=== PATIENT | male | born 1945 | race Caucasian/White ===

== ENCOUNTER 2020-10-07 10:47 | Emergency (ER) | payer MEDICARE, SELFPAY ==
[2020-10-07 11:05] VITALS: BP 156/81; PULSE 61; RESP 18; TEMP 36.6; O2SAT 94; BMI 27.8
--- NOTE | 2020-10-07 11:12 | ED_ITS ---
HPI - Trauma General: Chief Complaint: Trauma Stated Complaint: CHIN WOUND/LACERATION Time Seen by Provider: 10/07/20 11:12 History of Present Illness: HPI narrative: Patient is a 75-year-old male comes to the ED with a laceration on chin. Patient says injury occurred just prior to arrival. 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 This caused the laceration to his chin and patient cleaned it out and put ice on it and placed bandage before coming to the ED. Patient says he is up-to-date on his tetanus. Denies any loss of consciousness. Associated symptoms: Denies abdominal pain, back pain, chest pain, chills, fever(s), headache(s), nausea or vomiting Review of Systems Const: Denies: fever(s), chills or fatigue Eyes: Denies: change in vision or eye discomfort ENMT: Denies: throat pain, odynophagia, nasal discharge or nasal congestion Card: Denies: chest pain, palpitations, edema, swelling of feet/ankles, dyspnea on exertion or orthopnea Resp: Denies: dyspnea, productive cough or non-productive cough GI: Denies: abdominal pain, nausea, vomiting, diarrhea, constipation or hematochezia : Denies: flank pain, difficulty urinating, dysuria or hematuria Musc: Denies: neck pain, back pain or extremity swelling Skin/Breast: Reports: new lesions (laceration on chin); Denies: rash Neuro: Denies: headache(s), numbness in extremities or weakness in extremities Physical Exam Const: COMMON NORMALS: no acute distress, patient oriented x3, healthy appearing and alert GENERAL APPEARANCE: cooperative and comfortable HENMT: COMMON NORMALS: normocephalic HEAD & SCALP: normocephalic FACE & SINUS: laceration bilateral chin irregular (U shaped lac), superficial, with motor nerve function intact and with sensation intact; not actively bleeding, no pulsatile bleeding, with no foreign body present and not contaminated Facial laceration size: 2 cm MOUTH: Normal oral and palatal mucosa present THROAT: posterior oropharynx normal and uvula midline Neck/C-Spine: COMMON NORMALS: supple GENERAL: Yes normal visual inspection Resp: COMMON NORMALS: normal respiratory effort, No retractions, No use of accessory muscles and clear to auscultation bilaterally AUSCULTATION: clear to auscultation bilaterally Cardio: COMMON NORMALS: regular rate, regular rhythm, S1 normal heart sound present, S2 normal heart sound present, No gallops present (Cardio), No clicks present (Cardio), No murmurs present (Cardio) and Peripheral pulses 2+ throughout RATE: regular rate RHYTHM: regular rhythm HEART SOUNDS: S1 normal heart sound present and S2 normal heart sound present PERIPHERAL PULSES: Peripheral pulses 2+ throughout GI: COMMON NORMALS: Normal to inspection, nondistended, normoactive bowel sounds present, Soft to palpation, non-tender and no masses PALPATION: Yes Soft to palpation : COMMON NORMALS: Yes no CVA tenderness BLADDER/KIDNEY EXAM: Yes no CVA tenderness Back/Pelvis: COMMON NORMALS: no CVA tenderness Extremity: COMMON NORMALS: normal to inspection Neuro: COMMON NORMALS: patient oriented x3 and moves all extremities SENSORIUM/ORIENTATION: Yes alert Skin: NARRATIVE SKIN EXAM: 2 cm U-shaped superficial laceration to chin. Details in the [facility] section of exam. GENERAL SKIN EXAM: dry skin Procedures Laceration Laceration 1: Site: face (chin) Size (cm): 2 Description: irregular (u shaped) and clean Depth: simple, single layer Local Anesthetic: lidocaine 1% Amount of anesthesia used (mL): 10 Pre-repair: irrigated extensively Skin layer closed with: vicryl Size (cm): 5-0 Number of sutures: 6 Technique: simple, interrupted MDM - Trauma MDM Narrative: Medical decision making narrative: Patient is a 75-year-old male who comes to the ED with a laceration to chin. He is up-to-date on his tetanus shot. Denies any loss of consciousness after injury. Laceration was irrigated extensively with normal saline and cleaned with CHG swab. 6 sutures were placed to close chin laceration. Patient was discharged with cephalexin for prophylactic treatment. He was instructed on how to care for sutures and told to return to medical provider to have sutures evaluated and possibly removed in 5 days. Return ED precautions given. Patient understood and agree with plan. Discharge Plan Discharge Patient Disposition: Home Clinical Impression: Facial laceration Qualifiers: Encounter type: initial encounter Qualified Code(s): S01.81XA - Laceration without foreign body of other part of head, initial encounter Condition: Stable Prescriptions: New cephalexin 500 mg capsule 500 mg PO TID 4 Days Qty: 12 RF: 0 Discharge Orders: Discharge ED (Routine); Ordered 10/07/20 Ordered By: Tyler Rapp Discharge Diet: Regular Discharge Activity: Limit activity as instructed Patient Instructions: Suture Care (ED), Laceration (ED) Activity Restrictions/Additional Instructions: Take full course of antibiotics as prescribed. Keep laceration site clean and dry for the next 48 hours. Then after that you can clean and re-bandage daily. Watch for signs of infection such as redness, warmth, increased tenderness and puslike drainage. If you see the signs of infection return to the ED, urgent care or PCP for reevaluation. call your PCP to schedule a follow-up appointment for reevaluation and suture removal in about 5 days. Continue taking all home meds. Follow discharge plans as discussed. You can return to the ED if symptoms worsen. Coding Level of Care Code ED [employer] for Abad Melendez Exam Comprehensive
[2020-10-07 11:13] VITALS: BP 150/86; PULSE 56; O2SAT 96
[2020-10-07] MEDS: lidocaine 1% INJ 20 mL INJECTION (11:20)
[2020-10-07 11:58] VITALS: BP 136/87; PULSE 55; O2SAT 94
== END 2020-10-07 12:01 | disposition home or self-care (01) ==
PROVIDERS: Emergency Provider Physician Assistant
DX: S01.81XA Laceration without foreign body of other part of head, initial encounter (principal); W20.8XXA Other cause of strike by thrown, projected or falling object, initial encounter
CPT/HCPCS: 12011; 12345; 99282; 99291

== ENCOUNTER 2021-12-13 16:19 | Outpatient (CLI) | payer MEDICARE, SELFPAY ==
[2021-12-13 17:18] LABS: INR 1.53 (0.8-1.2)
== END 2021-12-13 16:20 | disposition home or self-care (01) ==
PROVIDERS: Visit Provider Family Medicine
DX: I82.5Z9 Chronic embolism and thrombosis of unspecified deep veins of unspecified distal lower extremity (principal)
CPT/HCPCS: 85610